=== PATIENT | female | born 1985 | race African-American/Black ===

== ENCOUNTER 2018-03-13 20:40 | Emergency (ER) | payer OTHER ==
[2018-03-13 20:48] VITALS: BP 147/99; PULSE 99; TEMP 97.7; BMI 37.6
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
== END 2018-03-13 21:58 | disposition home or self-care (01) ==
LOC: JERFT 20:40
DX: S86.812A Strain of other muscle(s) and tendon(s) at lower leg level, left leg, initial encounter (principal); X50.1XXA Overexertion from prolonged static or awkward postures, initial encounter; Y93.89 Activity, other specified; Y92.118 Other place in children's home and orphanage as the place of occurrence of the external cause; Y99.0 Civilian activity done for income or pay
CPT/HCPCS: 99281-25

== ENCOUNTER 2018-05-04 07:25 | Day surgery (SDC) | payer OTHER ==
[2018-04-30 14:34] VITALS: BMI 41.1
[2018-05-04] MEDS ORDERED: BUPIVACAINE HCL/PF 2.5 MG/ML - 30 ML VIAL IJ ONE (09:19)
[2018-05-04] MEDS ORDERED: MIDAZOLAM HCL 2 MG/2 ML SINGLE DOSE VIAL ONE (09:31)
[2018-05-04] MEDS ORDERED: SUCCINYLCHOLINE CHLORIDE 200 MG/10 ML VIAL ONE (09:38)
[2018-05-04] MEDS ORDERED: BUPIVACAINE HCL/PF 0.25% (2.5MG/ML) 10 ML VIAL IJ ONE (10:14)
[2018-05-04 11:24] VITALS: TEMP 98.9
[2018-05-04 11:54] VITALS: BP 139/70; PULSE 89
[2018-05-04] MEDS ORDERED: ACETAMINOPHEN 325 MG TABLET (FP) PO PRN (13:58)
[2018-05-04] MEDS ORDERED: ONDANSETRON 4 MG/2 ML VIAL IVPUSH PRN (13:58)
[2018-05-04] MEDS ORDERED: oxyCODONE HCL 5 MG TABLET PO PRN ×2 (13:58)
[2018-05-04] MEDS ORDERED: LACTATED RINGERS SOLUTION 1,000 ML IV SCH (14:00)
--- NOTE | 2018-05-06 14:44 | OP ---
DATE OF OPERATION: 05/04/2018 SURGEON: Carson Avalos MD MANAGER ER: JESS Myers PREOPERATIVE DIAGNOSES: 1. Left knee medial and lateral meniscal tear. 2. Left knee cartilage injury. 3. Left knee synovitis. POSTOPERATIVE DIAGNOSES: 1. Left knee medial and lateral meniscal tear. 2. Left knee cartilage injury. 3. Left knee synovitis. PROCEDURE: 1. Left knee arthroscopy with partial meniscectomy, medial and lateral meniscus; CPT code 49112. 2. Left knee arthroscopy with chondroplasty and abrasionplasty; CPT code 13790. 3. Left knee arthroscopy with synovectomy; CPT code 59963. FINDINGS: 1. Medial meniscus body and posterior horn tear. 2. Lateral meniscus posterior horn tear. 3. Synovitis, patellofemoral and medial and lateral notch area. 4. Essentially grade 3 cartilage injury, medial femoral condyle. 5. ACL and PCL intact. 6. Diffuse grade 1 to 2 cartilage injury, lateral joint line. 7. Essentially grade 2 to 4 cartilage injury, patellofemoral trochlea and patellofemoral joint. PROCEDURE: Informed consent was obtained. The patient came to the operating room, where the lower extremity was prepped and draped in a sterile fashion. A tourniquet was placed on the upper thigh, but not inflated. Using standard arthroscopic technique, a lateral incision and portal was made to allow for introduction of the camera into the suprapatellar bursa. This was then taken to the medial joint line, where under direct visualization, a medial incision and portal was made. Excessive synovium noted in the medial, lateral and patellofemoral and notch area was removed by an upbiter, shaver and Bovie cautery. This was found to bring in inflammatory tissue into the joint surface, a source of pain and dysfunction. Probing of the medial and lateral meniscus found tears, as described in the findings. These were removed with the upbiter and shaver and taken back to a stable rim. Grade 2 to 3 degenerative changes were treated with a chondroplasty, removing all flaking surfaces with low-setting Bovie along the periphery to prevent further flaking. Grade 4 changes, as noted, were treated with an abrasionplasty, creating a bleeding surface at the bone/cartilage interface. Aggressive debridement with shaver/russel created bleeding surface. Micro fracture also done when indicated in findings. All areas of the knee were once again reexamined. The knee was then drained and a single suture was placed in all portals. A sterile dressing was placed and the patient was transferred to the recovery room without complication. The PA listed above was present and assisted at surgery. Their presence was absolutely medically necessary for the completion of the procedure. They helped hold the arthroscopy, pass instruments (and implants when indicated) and the procedure could not have been completed without their assistance. CARSON AVALOS M.D. [id number]
--- NOTE | 2018-05-08 16:00 | PATH ---
Surgical Pathology Report Patient Name: CHINO CEBALLOS Med. Rec. #: [id number] /Age/Gender: 1985 (Age: 32) / F Account: [id number] Location: [facility] AMBUL[facility] Taken: 05/04/2018 Received: 05/04/2018 Reported: 05/08/2018 Physicians: Carson Rodriguez M.D. Specimen(s) Received LEFT KNEE SHAVINGS Clinical History Left knee internal derangement Final Diagnosis KNEE, LEFT, ARTHROSCOPIC SHAVINGS: FIBROSYNOVIAL TISSUE AND CARTILAGE. Electronically Signed Lizabeth Chatman M.D. Gross Description Received in formalin, labeled "left knee shavings," is a 3.0 x 2.8 x 0.3 cm. aggregate of mora-yellow soft tissue fragments. A sales representative cash registers portion is submitted in one cassette. /05/04/2018 saudi05/04/2018
== END 2018-05-04 12:02 | disposition home or self-care (01) ==
LOC: FASU 07:25
PROVIDERS: ATTEND Orthopaedic Surgery
PROC: 0SBD4ZZ Excision of Left Knee Joint, Percutaneous Endoscopic Approach (ICD-10-PCS; 2018-05-04)
PROC: 0SBD4ZZ Excision of Left Knee Joint, Percutaneous Endoscopic Approach (ICD-10-PCS; 2018-05-04)
PROC: 0SBD4ZZ Excision of Left Knee Joint, Percutaneous Endoscopic Approach (ICD-10-PCS; principal; 2018-05-04 09:30)
DX: S83.242A Other tear of medial meniscus, current injury, left knee, initial encounter (principal); S83.282A Other tear of lateral meniscus, current injury, left knee, initial encounter; S83.8X2A Sprain of other specified parts of left knee, initial encounter; M65.862 Other synovitis and tenosynovitis, left lower leg
CPT/HCPCS: 84703; 88304-TC; 94760

== ENCOUNTER 2022-10-20 12:26 | Emergency (ER) | payer BC, OTHER ==
[2022-10-20 12:42] VITALS: BP 147/89; PULSE 95; RESP 22; TEMP 97.8; BMI 44.7
[2022-10-20] MEDS ORDERED: LIDOCAINE 5% TOPICAL PATCH TP ONE (14:27)
[2022-10-20] MEDS ORDERED: LIDOCAINE 5% TOPICAL PATCH ONE (14:28)
[2022-10-20 15:19] LABS: EPI CELLS >36 /uL (0-25.1); HYALINE CASTS 23 /uL (0-3.1); PH,URINE 7.5 (5.0-8.0); URINE APPEARANCE TURBID; URINE BACTERIA 2779 /uL (0-1359); URINE BILIRUBIN NEGATIVE (NEGATIVE); URINE COLOR YELLOW; URINE GLUCOSE (UA) NEGATIVE (NEGATIVE); URINE KETONE NEGATIVE (NEGATIVE); URINE LEUK ESTERASE 3+ (NEGATIVE); URINE NITRITE NEGATIVE (NEGATIVE); URINE PROTEIN 2+ (NEGATIVE); URINE UROBILINOGEN 0.2 mg/dL (0.2-1.0); URINE WBC 7714 /uL (0-25.8)
[2022-10-20 15:50] LABS: URINE RBC 314.6 /uL (0-23.9); YEAST NEGATIVE (NEGATIVE)
[2022-10-20 15:54] LABS: HCG,QUALITATIVE URINE Negative
[2022-10-20] MEDS ORDERED: LIDOCAINE PATCH REMOVAL MC SCH (22:00)
== END 2022-10-20 15:48 | disposition home or self-care (01) ==
LOC: JERFT 12:26
DX: M54.42 Lumbago with sciatica, left side (principal); N39.0 Urinary tract infection, site not specified
CPT/HCPCS: 81003; 84703; 87086; 87186; 99283-25